=== PATIENT | female | born 1950 | race Caucasian/White ===

== ENCOUNTER 2017-10-22 23:44 | Inpatient (IN) | payer MEDICARE, OTHER ==
[~2017-10-22] VITALS: Ht 162.6 cm; Wt 90.9 kg
[~2017-10-22 23:44] MED LIST: ASPI1CPM9 PO; ATOR20TA66 PO; CINN500C16 PO; EMPA1TAB PO; GABA-532 PO; GARL200T PO; HYDR-569 PO; INSU100V36 SQ; LANTUS SQ; LISI2.5T2 PO; METF500T PO; MULT-821 PO; OMEG1CAP54 PO; ONDA8TAB9 PO; PRIM250T32 PO; PROP40TA7 PO
[2017-10-23] MEDS ORDERED: aspirin 81mg tab.chew PO ONE (00:30)
[2017-10-23] MEDS ORDERED: albuterol 2.5 MG/3 ML nebule CONTNEB PRN (00:50)
[2017-10-23] MEDS ORDERED: ipratropium 0.5 MG/2.5ML nebule IH ONE (00:50)
[2017-10-23 01:07] LABS: BASOPHILS # (AUTO) 0.1 X10'3 (0-0.2); BASOPHILS % (AUTO) 0.7 % (0-1); EOSINOPHILS # (AUTO) 0.1 X10'3 (0-0.9); EOSINOPHILS % (AUTO) 0.4 % (0-6); HEMATOCRIT 40.6 % (35.0-45.0); HEMOGLOBIN 13.2 g/dl (12.0-16.0); LYMPHOCYTES # (AUTO) 2.5 X10'3 (1.1-4.8); LYMPHOCYTES % (AUTO) 16.3 % (21-51); MEAN CORPUSCULAR HGB CONC 32.6 % (33.0-36.5); MEAN PLATELET VOLUME 8.2 FL (7.4-10.4); MONOCYTES # (AUTO) 0.6 X10'3 (0-0.9); MONOCYTES % (AUTO) 3.9 % (2-12); NEUTROPHILS # (AUTO) 12.1 X10'3 (1.8-7.7); NEUTROPHILS % (AUTO) 78.7 % (42-75); PLATELET COUNT 241 X10'3 (140-440); RED BLOOD COUNT 4.42 X10'6 (4.20-5.60); RED CELL DISTRIBUTION WIDTH 14.7 % (11.5-14.5); WHITE BLOOD COUNT 15.4 X10'3 (4.5-11.0)
[2017-10-23 01:13] LABS: PARTIAL THROMBOPLASTIN TIME 28 SECONDS (22-32); PROTHROMBIN TIME 10.7 SECONDS (9.0-12.0)
[2017-10-23 01:24] LABS: LIPASE 60 U/L (73-393); MAGNESIUM 1.6 MG/DL (1.5-2.4)
[2017-10-23 01:49] LABS: CLARITY,URINE SLIGHTLY CLOUDY (Clear); COLOR,URINE YELLOW (Yellow); GLUCOSE, URINE NEGATIVE (Neg); KETONES,URINE TRACE mg/dl (Neg); LEUKOCYTE ESTERASE ,URINE NEGATIVE (Neg); NITRITES, URINE NEGATIVE (Neg); OCCULT BLOOD,URINE NEGATIVE (Neg); PROTEIN,URINE 100 mg/dl (Neg); UROBILINOGEN,URINE 0.2 E.U/dL (0.2-1.0)
[2017-10-23 02:04] LABS: UA COLLECTION TYPE CLN CATCH MIDSTREAM
[2017-10-23 02:10] LABS: BACTERIA,URINE 1+ /HPF (Neg); MUCUS STRANDS MODERATE /LPF (Neg); RBC,URINE 0-2 /HPF (0-2); SQUAMOUS EPITHELIAL CELL,UR MANY /LPF (FEW); WBC,URINE 0-4 /HPF (0-4)
[2017-10-23 02:27] LABS: ALANINE AMINOTRANSFERASE 14 U/L (12-78); ALBUMIN 2.8 G/DL (3.4-5.0); ALBUMIN/GLOBULIN RATIO 0.6 (1.1-1.5); ALKALINE PHOSPHATASE 105 IU/L (46-116); ANION GAP 13 (8-16); ASPARTATE AMINO TRANSFERASE 16 U/L (10-37); BILIRUBIN,TOTAL 0.6 MG/DL (0.1-1.0); BLOOD UREA NITROGEN 22 MG/DL (7-18); BUN/CREATININE RATIO 17.5 (6.6-38.0); CALCIUM 8.6 MG/DL (8.5-10.1); CHLORIDE 101 MMOL/L (99-107); CREATININE 1.26 MG/DL (0.40-0.90); GLUCOSE 251 MG/DL (70-104); POTASSIUM 4.9 MMOL/L (3.5-5.1); SODIUM 135 MMOL/L (135-145); TOTAL CARBON DIOXIDE 21.2 MMOL/L (24-32); TOTAL PROTEIN 7.5 G/DL (6.4-8.2); eGFR 42 ML/MIN
[2017-10-23] MEDS ORDERED: IBUP-2417 (02:27)
[2017-10-23] MEDS ORDERED: OMEP40CA37 PO (02:27)
[2017-10-23] MEDS ORDERED: ACYC400T PO (02:27)
[2017-10-23] MEDS ORDERED: ASPI-1 PO (02:27)
[2017-10-23] MEDS ORDERED: PRAV40TA3 PO (02:28)
[2017-10-23] MEDS ORDERED: iohexol 300mg/ml 100ml inj. ONE (02:57)
[2017-10-23] MEDS ORDERED: iohexol 350MG/ML 100ml bottle IV ONE (03:04)
[2017-10-23] MEDS ORDERED: normal saline 1000ml 1,000 ML IV ONE (03:05)
[2017-10-23] MEDS ORDERED: ondansetron/PF 4mg/2ml inj IV PRN (04:10)
[2017-10-23] MEDS ORDERED: acetaminophen 325mg tablet PO PRN (04:10)
[2017-10-23] MEDS ORDERED: magnesium hydroxide 30ml (MOM) UD suspension PO PRN (04:10)
[2017-10-23] MEDS ORDERED: dextrose ORAL solution 15 GM/59 ML bottle PO PRN ×4 (04:20→17:10)
[2017-10-23] MEDS ORDERED: dextrose 50%-water 50ml dispensing syringe IV PRN ×4 (04:20→17:10)
[2017-10-23] MEDS ORDERED: glucagon, human recombinant 1mg kit SUBCUT PRN ×2 (04:20→17:10)
[2017-10-23] MEDS ORDERED: MESSAGE TO PHARMACY PO ONE ×2 (04:20→17:10)
[2017-10-23 04:41] LABS: HEMOGLOBIN A1C 9.5 % (4.5-6.2)
[2017-10-23 05:20] VITALS: BP 129/71
[2017-10-23 07:19] LABS: RHEUM FACTOR QUAL REFLEX TITER NEGATIVE (Neg)
[2017-10-23] MEDS ORDERED: FLUO20CA39 PO (07:46)
[2017-10-23 08:00] VITALS: BP 106/52
[2017-10-23] MEDS ORDERED: MESSAGE TO NURSING PO ONE (08:00)
[2017-10-23] MEDS: albuterol 2.5 MG/3 ML nebule NEB SCH ×5 (08:00→23:11)
[2017-10-23] MEDS: insulin Lispro (HumaLOG) vial - multi-dose SQ SCH ×3 (09:13→18:55)
[2017-10-23] MEDS: heparin, porcine 5000 units/ml vial SQ SCH ×2 (09:16→19:57)
[2017-10-23 12:00] VITALS: BP 129/59
[2017-10-23] MEDS: mag hydrox/Alum hydrox/simeth 30ml oral suspension PO PRN (12:15)
[2017-10-23] MEDS: levoFLOXACIN-Levaquin 500mg/D5 100 ML IV SCH (17:49)
[2017-10-23 18:00] VITALS: BP 124/66
[2017-10-23] MEDS ORDERED: ibuprofen 200mg tablet PO ONE (19:25)
[2017-10-23] MEDS: furosemide 40mg/4ml inj IV SCH (19:59)
[2017-10-23] MEDS: methylPREDNISolone sod succ 125mg/2ml vial IV SCH (20:00)
[2017-10-23] MEDS ORDERED: insulin glargine (Lantus) pen - multi-dose SQ SCH ×2 (21:00)
[2017-10-24] VITALS: BP 123/63
[2017-10-24] MEDS: methylPREDNISolone sod succ 125mg/2ml vial IV SCH ×4 (02:00→20:41)
[2017-10-24] MEDS: gabapentin 300mg capsule PO SCH ×4 (02:16→20:41)
[2017-10-24] MEDS: albuterol 2.5 MG/3 ML nebule NEB SCH ×6 (03:00→23:34)
[2017-10-24 04:28] LABS: BASOPHILS # (AUTO) 0.1 X10'3 (0-0.2); BASOPHILS % (AUTO) 0.7 % (0-1); EOSINOPHILS # (AUTO) 0.3 X10'3 (0-0.9); EOSINOPHILS % (AUTO) 3.4 % (0-6); HEMATOCRIT 38.5 % (35.0-45.0); LYMPHOCYTES # (AUTO) 3.2 X10'3 (1.1-4.8); LYMPHOCYTES % (AUTO) 37.7 % (21-51); MEAN CORPUSCULAR HEMOGLOBIN 31.3 PG (27.0-31.0); MEAN CORPUSCULAR HGB CONC 33.8 % (33.0-36.5); MEAN CORPUSCULAR VOLUME 92.5 FL (78-98); MEAN PLATELET VOLUME 7.9 FL (7.4-10.4); MONOCYTES # (AUTO) 0.9 X10'3 (0-0.9); MONOCYTES % (AUTO) 10.9 % (2-12); NEUTROPHILS % (AUTO) 47.3 % (42-75); PLATELET COUNT 221 X10'3 (140-440); RED BLOOD COUNT 4.16 X10'6 (4.20-5.60); RED CELL DISTRIBUTION WIDTH 15.4 % (11.5-14.5); WHITE BLOOD COUNT 8.4 X10'3 (4.5-11.0)
[2017-10-24 05:00] LABS: ALANINE AMINOTRANSFERASE 20 U/L (12-78); ALBUMIN 2.7 G/DL (3.4-5.0); ALBUMIN/GLOBULIN RATIO 0.6 (1.1-1.5); ALKALINE PHOSPHATASE 100 IU/L (46-116); ANION GAP 11 (8-16); ASPARTATE AMINO TRANSFERASE 22 U/L (10-37); BILIRUBIN,TOTAL 0.4 MG/DL (0.1-1.0); BLOOD UREA NITROGEN 23 MG/DL (7-18); BUN/CREATININE RATIO 17.2 (6.6-38.0); CALCIUM 9.1 MG/DL (8.5-10.1); CHLORIDE 102 MMOL/L (99-107); CREATININE 1.34 MG/DL (0.40-0.90); GLUCOSE 191 MG/DL (70-104); POTASSIUM 4.1 MMOL/L (3.5-5.1); SODIUM 137 MMOL/L (135-145); TOTAL CARBON DIOXIDE 24.3 MMOL/L (24-32); TOTAL PROTEIN 7.4 G/DL (6.4-8.2); eGFR 40 ML/MIN
[2017-10-24 08:00] VITALS: BP 132/63
[2017-10-24] MEDS: insulin Lispro (HumaLOG) vial - multi-dose SQ SCH ×3 (09:12→19:44)
[2017-10-24] MEDS: levoFLOXACIN-Levaquin 500mg/D5 100 ML IV SCH (09:13)
[2017-10-24] MEDS: heparin, porcine 5000 units/ml vial SQ SCH ×2 (09:13→20:31)
[2017-10-24] MEDS: furosemide 40mg/4ml inj IV SCH ×2 (09:14→20:28)
[2017-10-24 11:16] VITALS: BP 122/65
[2017-10-24 18:00] VITALS: BP 113/60
[2017-10-24] MEDS ORDERED: PROPRANOLOL HCL 80 MG PO SCH (20:00)
[2017-10-24] MEDS: propranolol 40mg tablet PO SCH (20:41)
[2017-10-24] MEDS: lactobacillus rhamnosus 10,000 MMU CELLS/CAPSULE PO SCH (20:41)
[2017-10-24] MEDS: pravastatin 40mg tablet PO SCH (20:41)
[2017-10-24] MEDS ORDERED: insulin glargine (Lantus) pen - multi-dose SQ SCH (21:00)
[2017-10-24] MEDS ORDERED: gabapentin 300mg capsule PO SCH (21:00)
[2017-10-25] VITALS: BP_SYST 117; BP_SYST 122; BP_DIAS 51; BP_DIAS 69
[2017-10-25] MEDS: methylPREDNISolone sod succ 125mg/2ml vial IV SCH ×2 (02:39→08:51)
[2017-10-25] MEDS: albuterol 2.5 MG/3 ML nebule NEB SCH ×6 (03:00→23:26)
[2017-10-25] MEDS ORDERED: aspirin 325mg tablet PO ONE (04:00)
[2017-10-25 05:18] LABS: BASOPHILS % (AUTO) 0.2 % (0-1); EOSINOPHILS % (AUTO) 0 % (0-6); HEMATOCRIT 41.8 % (35.0-45.0); LYMPHOCYTES # (AUTO) 1.3 X10'3 (1.1-4.8); LYMPHOCYTES % (AUTO) 16.2 % (21-51); MEAN CORPUSCULAR HEMOGLOBIN 30.5 PG (27.0-31.0); MEAN CORPUSCULAR HGB CONC 33.5 % (33.0-36.5); MEAN PLATELET VOLUME 8.2 FL (7.4-10.4); MONOCYTES # (AUTO) 0.1 X10'3 (0-0.9); MONOCYTES % (AUTO) 1.1 % (2-12); NEUTROPHILS # (AUTO) 6.4 X10'3 (1.8-7.7); NEUTROPHILS % (AUTO) 82.5 % (42-75); PLATELET COUNT 245 X10'3 (140-440); WHITE BLOOD COUNT 7.7 X10'3 (4.5-11.0)
[2017-10-25 05:43] LABS: ALANINE AMINOTRANSFERASE 17 U/L (12-78); ALBUMIN 2.9 G/DL (3.4-5.0); ALBUMIN/GLOBULIN RATIO 0.5 (1.1-1.5); ALKALINE PHOSPHATASE 104 IU/L (46-116); ANION GAP 15 (8-16); ASPARTATE AMINO TRANSFERASE 16 U/L (10-37); BILIRUBIN,TOTAL 0.5 MG/DL (0.1-1.0); BLOOD UREA NITROGEN 37 MG/DL (7-18); BUN/CREATININE RATIO 24.5 (6.6-38.0); CALCIUM 9.2 MG/DL (8.5-10.1); CHLORIDE 95 MMOL/L (99-107); CREATININE 1.51 MG/DL (0.40-0.90); GLUCOSE 400 MG/DL (70-104); POTASSIUM 4.6 MMOL/L (3.5-5.1); SODIUM 131 MMOL/L (135-145); TOTAL CARBON DIOXIDE 20.8 MMOL/L (24-32); TOTAL PROTEIN 8.3 G/DL (6.4-8.2); eGFR 34 ML/MIN
[2017-10-25 07:00] VITALS: BP 135/52
[2017-10-25] MEDS ORDERED: non-formulary drug (Omeprazole (Prilosec) 1 CAP) PO SCH (08:00)
[2017-10-25] MEDS ORDERED: aspirin 325mg tablet PO SCH (08:00)
[2017-10-25] MEDS: furosemide 40mg/4ml inj IV SCH ×2 (08:50→21:19)
[2017-10-25] MEDS: lactobacillus rhamnosus 10,000 MMU CELLS/CAPSULE PO SCH ×2 (08:51→21:16)
[2017-10-25] MEDS: gabapentin 300mg capsule PO SCH ×3 (08:51→21:18)
[2017-10-25] MEDS: lisinopril 2.5mg tablet PO SCH (08:51)
[2017-10-25] MEDS: levoFLOXACIN-Levaquin 500mg/D5 100 ML IV SCH (08:51)
[2017-10-25] MEDS: heparin, porcine 5000 units/ml vial SQ SCH ×2 (08:52→21:19)
[2017-10-25] MEDS: propranolol 40mg tablet PO SCH ×2 (08:52→21:18)
[2017-10-25] MEDS: insulin Lispro (HumaLOG) vial - multi-dose SQ SCH ×3 (08:55→18:49)
[2017-10-25] MEDS: pantoprazole 40mg Tablet.DR PO SCH (08:58)
[2017-10-25] MEDS ORDERED: dextrose ORAL solution 15 GM/59 ML bottle PO PRN ×2 (09:45)
[2017-10-25] MEDS ORDERED: glucagon, human recombinant 1mg kit SUBCUT PRN (09:45)
[2017-10-25] MEDS ORDERED: dextrose 50%-water 50ml dispensing syringe IV PRN ×2 (09:45)
[2017-10-25] MEDS ORDERED: MESSAGE TO PHARMACY PO ONE (09:45)
[2017-10-25] MEDS: normal saline 1000ml 1,000 ML IV SCH ×3 (10:01→23:17)
[2017-10-25 11:00] VITALS: BP 111/61
[2017-10-25] MEDS: mag hydrox/Alum hydrox/simeth 30ml oral suspension PO PRN (16:16)
[2017-10-25 18:00] VITALS: BP 114/70
[2017-10-25] MEDS: insulin glargine (Lantus) pen - multi-dose SQ SCH (21:13)
[2017-10-25] MEDS: pravastatin 40mg tablet PO SCH (21:16)
[2017-10-26] MEDS: albuterol 2.5 MG/3 ML nebule NEB SCH ×6 (03:10→23:20)
[2017-10-26 05:21] LABS: BASOPHILS # (AUTO) 0.1 X10'3 (0-0.2); BASOPHILS % (AUTO) 0.3 % (0-1); EOSINOPHILS % (AUTO) 0 % (0-6); HEMATOCRIT 37.4 % (35.0-45.0); HEMOGLOBIN 12.6 g/dl (12.0-16.0); LYMPHOCYTES # (AUTO) 1.7 X10'3 (1.1-4.8); LYMPHOCYTES % (AUTO) 8.7 % (21-51); MEAN CORPUSCULAR HEMOGLOBIN 30.8 PG (27.0-31.0); MEAN CORPUSCULAR HGB CONC 33.7 % (33.0-36.5); MEAN CORPUSCULAR VOLUME 91.6 FL (78-98); MEAN PLATELET VOLUME 8.2 FL (7.4-10.4); MONOCYTES # (AUTO) 0.7 X10'3 (0-0.9); MONOCYTES % (AUTO) 3.7 % (2-12); NEUTROPHILS % (AUTO) 87.3 % (42-75); PLATELET COUNT 243 X10'3 (140-440); RED BLOOD COUNT 4.09 X10'6 (4.20-5.60); RED CELL DISTRIBUTION WIDTH 15.5 % (11.5-14.5); WHITE BLOOD COUNT 19.4 X10'3 (4.5-11.0)
[2017-10-26] MEDS: normal saline 1000ml 1,000 ML IV SCH ×3 (05:26→19:19)
[2017-10-26 05:42] LABS: ALANINE AMINOTRANSFERASE 17 U/L (12-78); ALBUMIN 2.6 G/DL (3.4-5.0); ALBUMIN/GLOBULIN RATIO 0.6 (1.1-1.5); ALKALINE PHOSPHATASE 79 IU/L (46-116); ANION GAP 13 (8-16); ASPARTATE AMINO TRANSFERASE 11 U/L (10-37); BILIRUBIN,TOTAL 0.3 MG/DL (0.1-1.0); BLOOD UREA NITROGEN 37 MG/DL (7-18); BUN/CREATININE RATIO 28.9 (6.6-38.0); CALCIUM 8.7 MG/DL (8.5-10.1); CHLORIDE 101 MMOL/L (99-107); CREATININE 1.28 MG/DL (0.40-0.90); GLUCOSE 291 MG/DL (70-104); POTASSIUM 4.1 MMOL/L (3.5-5.1); SODIUM 136 MMOL/L (135-145); TOTAL CARBON DIOXIDE 22.2 MMOL/L (24-32); eGFR 42 ML/MIN
[2017-10-26 08:00] VITALS: BP 123/55
[2017-10-26] MEDS: lisinopril 2.5mg tablet PO SCH (08:36)
[2017-10-26] MEDS: lactobacillus rhamnosus 10,000 MMU CELLS/CAPSULE PO SCH ×2 (08:36→19:15)
[2017-10-26] MEDS: aspirin 325mg tablet PO SCH (08:36)
[2017-10-26] MEDS: heparin, porcine 5000 units/ml vial SQ SCH ×2 (08:36→19:16)
[2017-10-26] MEDS: propranolol 40mg tablet PO SCH ×2 (08:37→19:15)
[2017-10-26] MEDS: levoFLOXACIN-Levaquin 500mg/D5 100 ML IV SCH (08:46)
[2017-10-26] MEDS: pantoprazole 40mg Tablet.DR PO SCH (08:50)
[2017-10-26] MEDS: insulin Lispro (HumaLOG) vial - multi-dose SQ SCH ×3 (09:41→19:02)
[2017-10-26 12:00] VITALS: BP 131/62
[2017-10-26 19:00] VITALS: BP 120/63
[2017-10-26] MEDS: gabapentin 300mg capsule PO SCH (19:15)
[2017-10-26] MEDS ORDERED: methylPREDNISolone sod succ/PF 40mg inj. IV SCH (20:00)
[2017-10-26] MEDS: pravastatin 40mg tablet PO SCH (20:49)
[2017-10-26] MEDS: insulin glargine (Lantus) pen - multi-dose SQ SCH (20:54)
[2017-10-27] VITALS: BP 136/59
[2017-10-27] MEDS: normal saline 1000ml 1,000 ML IV SCH ×3 (01:45→10:25)
[2017-10-27] MEDS: albuterol 2.5 MG/3 ML nebule NEB SCH ×3 (03:34→12:06)
[2017-10-27 05:24] LABS: BASOPHILS % (AUTO) 0.2 % (0-1); EOSINOPHILS % (AUTO) 0.4 % (0-6); HEMATOCRIT 35.2 % (35.0-45.0); HEMOGLOBIN 11.5 g/dl (12.0-16.0); LYMPHOCYTES % (AUTO) 22.5 % (21-51); MEAN CORPUSCULAR HEMOGLOBIN 30.3 PG (27.0-31.0); MEAN CORPUSCULAR HGB CONC 32.6 % (33.0-36.5); MEAN PLATELET VOLUME 8.6 FL (7.4-10.4); MONOCYTES # (AUTO) 1.1 X10'3 (0-0.9); NEUTROPHILS # (AUTO) 9.1 X10'3 (1.8-7.7); NEUTROPHILS % (AUTO) 68.9 % (42-75); PLATELET COUNT 211 X10'3 (140-440); RED BLOOD COUNT 3.79 X10'6 (4.20-5.60); RED CELL DISTRIBUTION WIDTH 15.6 % (11.5-14.5); WHITE BLOOD COUNT 13.3 X10'3 (4.5-11.0)
[2017-10-27 05:53] LABS: ALANINE AMINOTRANSFERASE 17 U/L (12-78); ALBUMIN 2.3 G/DL (3.4-5.0); ALBUMIN/GLOBULIN RATIO 0.6 (1.1-1.5); ALKALINE PHOSPHATASE 75 IU/L (46-116); ANION GAP 10 (8-16); ASPARTATE AMINO TRANSFERASE 22 U/L (10-37); BILIRUBIN,TOTAL 0.3 MG/DL (0.1-1.0); BLOOD UREA NITROGEN 27 MG/DL (7-18); CHLORIDE 109 MMOL/L (99-107); CREATININE 0.93 MG/DL (0.40-0.90); GLUCOSE 156 MG/DL (70-104); POTASSIUM 4.3 MMOL/L (3.5-5.1); SODIUM 143 MMOL/L (135-145); TOTAL PROTEIN 6.1 G/DL (6.4-8.2); eGFR 60 ML/MIN
[2017-10-27 06:46] VITALS: BP 127/56
[2017-10-27] MEDS: levoFLOXACIN-Levaquin 500mg/D5 100 ML IV SCH (07:19)
[2017-10-27] MEDS: heparin, porcine 5000 units/ml vial SQ SCH (07:20)
[2017-10-27] MEDS: lisinopril 2.5mg tablet PO SCH (07:20)
[2017-10-27] MEDS: propranolol 40mg tablet PO SCH (07:20)
[2017-10-27] MEDS: gabapentin 300mg capsule PO SCH (07:21)
[2017-10-27] MEDS: pantoprazole 40mg Tablet.DR PO SCH (07:21)
[2017-10-27] MEDS: lactobacillus rhamnosus 10,000 MMU CELLS/CAPSULE PO SCH (07:21)
[2017-10-27] MEDS: aspirin 325mg tablet PO SCH (07:21)
[2017-10-27] MEDS: insulin Lispro (HumaLOG) vial - multi-dose SQ SCH ×2 (08:56→13:27)
[2017-10-28 15:16] LABS: ATYPICAL PANCA <1:20 titer (Neg:<1:20); CYTOPLASMIC (C-ANCA) <1:20 titer (Neg:<1:20); PERINUCLEAR (P-ANCA) <1:20 titer (Neg:<1:20)
== END 2017-10-27 13:45 | disposition left against medical advice (07) | DRG 871 ==
LOC: ER 23:45 → ED HOLD 10-23 04:10 → CMPBEDREQ 10-23 05:13 → SUR 3N 10-23 05:15
PROVIDERS: ADMIT Internal Medicine; ATTEND Family Medicine
PROC: BW241ZZ Computerized Tomography (CT Scan) of Chest and Abdomen using Low Osmolar Contrast (ICD-10-PCS; principal; 2017-10-23)
PROC: CB221ZZ Tomographic (Tomo) Nuclear Medicine Imaging of Lungs and Bronchi using Technetium 99m (Tc-99m) (ICD-10-PCS; 2017-10-24)
DX: A41.9 Sepsis, unspecified organism (principal); J18.9 Pneumonia, unspecified organism; J96.01 Acute respiratory failure with hypoxia; J84.9 Interstitial pulmonary disease, unspecified; J44.0 Chronic obstructive pulmonary disease with (acute) lower respiratory infection; Z53.21 Procedure and treatment not carried out due to patient leaving prior to being seen by health care provider; E78.00 Pure hypercholesterolemia, unspecified; F41.9 Anxiety disorder, unspecified; E11.22 Type 2 diabetes mellitus with diabetic chronic kidney disease; I12.9 Hypertensive chronic kidney disease with stage 1 through stage 4 chronic kidney disease, or unspecified chronic kidney disease; E11.65 Type 2 diabetes mellitus with hyperglycemia; N18.9 Chronic kidney disease, unspecified; G20 Parkinson's disease; I25.2 Old myocardial infarction; Z90.710 Acquired absence of both cervix and uterus; Z98.1 Arthrodesis status; Z88.5 Allergy status to narcotic agent; Z88.0 Allergy status to penicillin; Z79.82 Long term (current) use of aspirin; Z79.4 Long term (current) use of insulin; Z86.73 Personal history of transient ischemic attack (TIA), and cerebral infarction without residual deficits; Z87.891 Personal history of nicotine dependence; Z83.3 Family history of diabetes mellitus; Z80.9 Family history of malignant neoplasm, unspecified; Z84.89 Family history of other specified conditions
CPT/HCPCS: 36415; 71045; 71260; 78582; 80053; 81001; 81002; 82009; 82948; 83036; 83605; 83690; 83735; 83880; 84145; 84484; 85025; 85610; 85730; 86038; 86256; 86430; 87040; 87070; 93005; 93306; 93880; 94640; 94760; 97116; 97161; 97535; 99285; A9539; A9540; J1644; J1815; J1940; J1956; J2930; J7030; Q9967

== ENCOUNTER 2017-11-23 22:44 | Emergency (ER) | payer MEDICARE, OTHER ==
[~2017-11-23] VITALS: Ht 162.6 cm; Wt 80.0 kg
[~2017-11-23 22:44] MED LIST changes: +ASPI-1 PO; -ASPI1CPM9 PO; -ATOR20TA66 PO; -CINN500C16 PO; -EMPA1TAB PO; +FLUO20CA39 PO; -GARL200T PO; -HYDR-569 PO; +IBUP200C74; -METF500T PO; -OMEG1CAP54 PO; +OMEP40CA37 PO; -ONDA8TAB9 PO; +PRAV40TA3 PO; -PRIM250T32 PO
[2017-11-23 23:00] LABS: BASOPHILS % (AUTO) 0.3 % (0-1); EOSINOPHILS # (AUTO) 0.2 X10'3 (0-0.9); EOSINOPHILS % (AUTO) 1.5 % (0-6); HEMATOCRIT 39.7 % (35.0-45.0); HEMOGLOBIN 13.4 g/dl (12.0-16.0); LYMPHOCYTES # (AUTO) 2.4 X10'3 (1.1-4.8); LYMPHOCYTES % (AUTO) 20.1 % (21-51); MEAN CORPUSCULAR HEMOGLOBIN 30.7 PG (27.0-31.0); MEAN CORPUSCULAR HGB CONC 33.6 % (33.0-36.5); MEAN CORPUSCULAR VOLUME 91.1 FL (78-98); MEAN PLATELET VOLUME 7.9 FL (7.4-10.4); MONOCYTES # (AUTO) 1.1 X10'3 (0-0.9); MONOCYTES % (AUTO) 8.7 % (2-12); NEUTROPHILS # (AUTO) 8.4 X10'3 (1.8-7.7); NEUTROPHILS % (AUTO) 69.4 % (42-75); PLATELET COUNT 214 X10'3 (140-440); RED BLOOD COUNT 4.36 X10'6 (4.20-5.60); RED CELL DISTRIBUTION WIDTH 15.6 % (11.5-14.5); WHITE BLOOD COUNT 12.1 X10'3 (4.5-11.0)
[2017-11-23 23:12] LABS: PARTIAL THROMBOPLASTIN TIME 26 SECONDS (22-32); PROTHROMBIN TIME 10.4 SECONDS (9.0-12.0)
[2017-11-23 23:24] LABS: ALANINE AMINOTRANSFERASE 16 U/L (12-78); ALBUMIN 2.9 G/DL (3.4-5.0); ALBUMIN/GLOBULIN RATIO 0.6 (1.1-1.5); ALKALINE PHOSPHATASE 100 IU/L (46-116); ANION GAP 7 (8-16); ASPARTATE AMINO TRANSFERASE 13 U/L (10-37); BILIRUBIN,TOTAL 0.4 MG/DL (0.1-1.0); BLOOD UREA NITROGEN 18 MG/DL (7-18); BUN/CREATININE RATIO 17.8 (6.6-38.0); CALCIUM 9.2 MG/DL (8.5-10.1); CHLORIDE 102 MMOL/L (99-107); CREATININE 1.01 MG/DL (0.40-0.90); GLUCOSE 339 MG/DL (70-104); POTASSIUM 4.2 MMOL/L (3.5-5.1); SODIUM 134 MMOL/L (135-145); TOTAL CARBON DIOXIDE 25.1 MMOL/L (24-32); TOTAL PROTEIN 7.7 G/DL (6.4-8.2); eGFR 55 ML/MIN
[2017-11-24 01:40] LABS: CLARITY,URINE CLEAR (Clear); COLOR,URINE YELLOW (Yellow); GLUCOSE, URINE >=1000 mg/dl (Neg); KETONES,URINE NEGATIVE (Neg); LEUKOCYTE ESTERASE ,URINE NEGATIVE (Neg); NITRITES, URINE NEGATIVE (Neg); OCCULT BLOOD,URINE NEGATIVE (Neg); PH,URINE 5.5 (4.8-8.0); PROTEIN,URINE 30 mg/dl (Neg); UROBILINOGEN,URINE 0.2 E.U/dL (0.2-1.0)
[2017-11-24 01:46] LABS: UA COLLECTION TYPE CLN CATCH MIDSTREAM
[2017-11-24 01:47] LABS: BACTERIA,URINE FEW /HPF (Neg); RBC,URINE 0-2 /HPF (0-2); SQUAMOUS EPITHELIAL CELL,UR FEW /LPF (FEW); WBC,URINE 0-4 /HPF (0-4)
[2017-11-24 01:48] LABS: YEAST MODERATE /HPF (NEGATIVE)
[2017-11-24] MEDS ORDERED: PRED20TA PO (01:55)
[2017-11-24] MEDS ORDERED: LEVO500T2 PO (01:55)
[2017-11-24 02:36] VITALS: BP 142/79
== END 2017-11-24 02:38 | disposition home or self-care (01) ==
LOC: ER 22:45
DX: J44.1 Chronic obstructive pulmonary disease with (acute) exacerbation (principal); E78.00 Pure hypercholesterolemia, unspecified; I10 Essential (primary) hypertension; I25.2 Old myocardial infarction; E11.9 Type 2 diabetes mellitus without complications; Z90.710 Acquired absence of both cervix and uterus; Z98.890 Other specified postprocedural states; Z90.89 Acquired absence of other organs; Z86.73 Personal history of transient ischemic attack (TIA), and cerebral infarction without residual deficits; Z88.5 Allergy status to narcotic agent; Z88.0 Allergy status to penicillin; Z79.82 Long term (current) use of aspirin; Z79.4 Long term (current) use of insulin; Z79.899 Other long term (current) drug therapy; Z87.891 Personal history of nicotine dependence
CPT/HCPCS: 36415; 71045; 80053; 81001; 83605; 83880; 84145; 84484; 85025; 85610; 85730; 87040; 93005; 99285

== ENCOUNTER 2018-07-30 16:36 | Inpatient (IN) | payer MEDICARE, OTHER ==
[~2018-07-30] VITALS: Ht 162.6 cm; Wt 96.0 kg
[~2018-07-30 16:36] MED LIST changes: +IBUP-2417; -IBUP200C74
[2018-07-30] MEDS ORDERED: ibuprofen tablet 400 MG TABLET PO ONE (17:05)
[2018-07-30] MEDS ORDERED: insulin regular, human 10 units/0.1 ml syringe IV ONE (17:10)
[2018-07-30] MEDS ORDERED: normal saline 1000ML IV soln IVB ONE (17:10)
[2018-07-30 17:27] LABS: BASOPHILS # (AUTO) 0.1 X10'3 (0-0.2); BASOPHILS % (AUTO) 0.7 % (0-1); EOSINOPHILS % (AUTO) 0.2 % (0-6); HEMATOCRIT 36.7 % (35.0-45.0); HEMOGLOBIN 12.6 g/dl (12.0-16.0); LYMPHOCYTES # (AUTO) 2.5 X10'3 (1.1-4.8); LYMPHOCYTES % (AUTO) 18.3 % (21-51); MEAN CORPUSCULAR HEMOGLOBIN 32.4 PG (27.0-31.0); MEAN CORPUSCULAR HGB CONC 34.4 g/dL (33.0-36.5); MEAN CORPUSCULAR VOLUME 94.4 FL (78-98); MEAN PLATELET VOLUME 8.5 FL (7.4-10.4); MONOCYTES # (AUTO) 1.5 X10'3 (0-0.9); MONOCYTES % (AUTO) 10.8 % (2-12); NEUTROPHILS # (AUTO) 9.5 X10'3 (1.8-7.7); PLATELET COUNT 210 X10'3 (140-440); RED BLOOD COUNT 3.89 X10'6 (4.20-5.60); RED CELL DISTRIBUTION WIDTH 13.9 % (11.5-14.5); WHITE BLOOD COUNT 13.6 X10'3 (4.5-11.0)
[2018-07-30 17:35] LABS: ALANINE AMINOTRANSFERASE 22 U/L (12-78); ALBUMIN 2.8 G/DL (3.4-5.0); ALBUMIN/GLOBULIN RATIO 0.6 (1.1-1.5); ALKALINE PHOSPHATASE 79 IU/L (46-116); ANION GAP 9 (8-16); ASPARTATE AMINO TRANSFERASE 26 U/L (10-37); BILIRUBIN,TOTAL 0.7 MG/DL (0.1-1.0); BLOOD UREA NITROGEN 21 MG/DL (7-18); BUN/CREATININE RATIO 17.5 (6.6-38.0); CALCIUM 8.7 MG/DL (8.5-10.1); CHLORIDE 99 MMOL/L (99-107); GLUCOSE 384 MG/DL (70-104); POTASSIUM 4.6 MMOL/L (3.5-5.1); SODIUM 131 MMOL/L (135-145); TOTAL CARBON DIOXIDE 22.9 MMOL/L (24-32); TOTAL PROTEIN 7.3 G/DL (6.4-8.2); eGFR 45 ML/MIN
[2018-07-30 17:41] LABS: PARTIAL THROMBOPLASTIN TIME 32 SECONDS (22-32)
[2018-07-30 18:04] LABS: CLARITY,URINE CLOUDY (Clear); COLOR,URINE YELLOW (Yellow); GLUCOSE, URINE >=1000 mg/dl (Neg); KETONES,URINE 15 mg/dl (Neg); LEUKOCYTE ESTERASE ,URINE TRACE (Neg); NITRITES, URINE NEGATIVE (Neg); OCCULT BLOOD,URINE MODERATE (Neg); PROTEIN,URINE NEGATIVE (Neg); UROBILINOGEN,URINE 0.2 E.U/dL (0.2-1.0)
[2018-07-30 18:05] LABS: UA COLLECTION TYPE STRAIGHT CATH
[2018-07-30] MEDS ORDERED: CefTRIAXone 2gm/D5W 50ml 50 ML IV ONE (18:10)
[2018-07-30 18:11] LABS: SQUAMOUS EPITHELIAL CELL,UR MODERATE /LPF (FEW); WBC,URINE TNTC /HPF (0-4)
[2018-07-30 18:15] LABS: BACTERIA,URINE 1+ /HPF (Neg); YEAST MANY /HPF (NEGATIVE)
[2018-07-30 18:17] LABS: TRANSITIONAL EPI CELLS,URINE FEW /HPF; WBC CLUMPS,URINE MANY /HPF (NEGATIVE)
[2018-07-30] MEDS ORDERED: acetaminophen 325mg tablet PO PRN ×2 (20:20)
[2018-07-30] MEDS ORDERED: normal saline 1000ml 1,000 ML IV ONE (20:20)
[2018-07-30] MEDS ORDERED: MESSAGE TO PHARMACY PO ONE (20:20)
[2018-07-30] MEDS ORDERED: magnesium 2GM in 50ml NS 50 ML IV PRN (20:20)
[2018-07-30] MEDS ORDERED: dextrose 50%-water 50ml dispensing syringe IV PRN ×2 (20:20)
[2018-07-30] MEDS ORDERED: magnesium Cl slow-release 64mg tablet PO PRN (20:20)
[2018-07-30] MEDS ORDERED: glucagon, human recombinant 1mg kit SUBCUT PRN (20:20)
[2018-07-30] MEDS ORDERED: dextrose ORAL solution 15 GM/59 ML bottle PO PRN ×2 (20:20)
[2018-07-30] MEDS ORDERED: potassium Cl 20 mEq SR tablet PO PRN ×2 (20:20)
[2018-07-30] MEDS ORDERED: ondansetron/PF 4mg/2ml inj IV PRN (20:20)
[2018-07-30] MEDS ORDERED: magnesium 4gm in 100ml NS 100 ML IV PRN (20:20)
[2018-07-30] MEDS ORDERED: potassium Cl 40MEQ/NS 500ml 500 ML IV PRN ×2 (20:20)
[2018-07-30] MEDS ORDERED: mag hydrox/Alum hydrox/simeth 30ml oral suspension PO PRN (20:20)
[2018-07-30 20:59] LABS: HEMOGLOBIN A1C 12.7 % (4.5-6.2)
[2018-07-30] MEDS ORDERED: insulin glargine (Lantus) pen - multi-dose SQ SCH (21:00)
[2018-07-30 23:00] VITALS: BP 114/55
[2018-07-30] MEDS: insulin Lispro (HumaLOG) vial - multi-dose SQ SCH (23:49)
[2018-07-31] MEDS ORDERED: ipratropium/albuterol 3ml nebule NEB PRN (00:50)
--- NOTE | 2018-07-31 01:56 | NUR ---
PIV attempted by PCU nurse, Elyse. Patient screamed out saying "stop, it hurts. I don't want an IV! Id rather !" Patient requested breathing tx. RT waiting for her to finish a sandwich.
[2018-07-31] MEDS: ipratropium/albuterol 3ml nebule NEB SCH ×6 (02:03→23:21)
[2018-07-31 06:00] VITALS: BP 119/53
--- NOTE | 2018-07-31 06:05 | NUR ---
Patient in room ORTHO 4011. I have received report from Franchesca Linn RN and had the opportunity to ask questions and assume patient care.
--- NOTE | 2018-07-31 06:33 | NUR ---
Problems reprioritized. Patient report given, questions answered & plan of care reviewed with JACQUES Barragan.
[2018-07-31 07:12] LABS: ALBUMIN 2.5 G/DL (3.4-5.0); ANION GAP 9 (8-16); BLOOD UREA NITROGEN 21 MG/DL (7-18); BUN/CREATININE RATIO 17.4 (6.6-38.0); CHLORIDE 102 MMOL/L (99-107); CREATININE 1.21 MG/DL (0.40-0.90); GLUCOSE 436 MG/DL (70-104); MAGNESIUM 2.1 MG/DL (1.5-2.4); POTASSIUM 4.5 MMOL/L (3.5-5.1); SODIUM 134 MMOL/L (135-145); TOTAL CARBON DIOXIDE 23.1 MMOL/L (24-32); eGFR 45 ML/MIN
[2018-07-31 07:14] LABS: BASOPHILS # (AUTO) 0.1 X10'3 (0-0.2); BASOPHILS % (AUTO) 0.6 % (0-1); EOSINOPHILS # (AUTO) 0.1 X10'3 (0-0.9); EOSINOPHILS % (AUTO) 0.9 % (0-6); HEMATOCRIT 36.6 % (35.0-45.0); HEMOGLOBIN 12.4 g/dl (12.0-16.0); LYMPHOCYTES # (AUTO) 1.8 X10'3 (1.1-4.8); LYMPHOCYTES % (AUTO) 17.4 % (21-51); MEAN CORPUSCULAR HEMOGLOBIN 32.3 PG (27.0-31.0); MEAN CORPUSCULAR HGB CONC 33.9 g/dL (33.0-36.5); MEAN CORPUSCULAR VOLUME 95.3 FL (78-98); MEAN PLATELET VOLUME 8.7 FL (7.4-10.4); MONOCYTES # (AUTO) 1.4 X10'3 (0-0.9); MONOCYTES % (AUTO) 12.9 % (2-12); NEUTROPHILS # (AUTO) 7.2 X10'3 (1.8-7.7); NEUTROPHILS % (AUTO) 68.2 % (42-75); PLATELET COUNT 192 X10'3 (140-440); RED BLOOD COUNT 3.85 X10'6 (4.20-5.60); RED CELL DISTRIBUTION WIDTH 14.4 % (11.5-14.5); WHITE BLOOD COUNT 10.6 X10'3 (4.5-11.0)
[2018-07-31 08:00] VITALS: BP 131/71
[2018-07-31] MEDS ORDERED: budesonide 0.5mg/2ml UD nebule IH SCH (08:00)
[2018-07-31] MEDS: K and/or MAG REPLACEMENT MC SCH (08:00)
[2018-07-31] MEDS: lactobacillus rhamnosus 10,000 MMU CELLS/CAPSULE PO SCH ×2 (08:17→20:00)
[2018-07-31] MEDS: enoxaparin 40mg/0.4ml syringe SQ SCH (08:18)
--- NOTE | 2018-07-31 09:43 | NUR ---
PAGER ID: [phone] MESSAGE: La[facility] on [employer], # [phone] or [phone], Ms. Jewell in 4[address], c/o chest pain, EKG done, indicates ROMINAR, faviola, thank you
[2018-07-31] MEDS: insulin Lispro (HumaLOG) vial - multi-dose SQ SCH ×4 (10:56→21:57)
[2018-07-31] MEDS: aspirin/acetaminophen/caffeine tablet PO PRN ×2 (11:31→21:25)
--- NOTE | 2018-07-31 12:00 | NUR ---
PAGER ID: [phone] MESSAGE: [facility], Ms. Jewell in 4571T, are you able to call me re medications?, pharm has questions, #[phone], thank you
[2018-07-31] MEDS: insulin glargine (Lantus) pen - multi-dose SQ SCH ×2 (12:27→20:21)
--- NOTE | 2018-07-31 12:41 | NUR ---
Extended PIV inserted to the right upper arm cephalic vein x 1 ateempt after 2 failed attempt to the left upper arm cephalic vein and 1 PIV 20 to left FA all using ultrasound. Lico well Addendum: 07/31/18 at 1243 by Sommer Wheatley RN Amended: Links added.
[2018-07-31] MEDS: gabapentin 400mg capsule PO SCH ×2 (13:24→20:24)
[2018-07-31] MEDS: normal saline 1000ml 1,000 ML IV SCH (13:24)
[2018-07-31] MEDS: LIDOcaine 5% patch TP SCH (13:24)
[2018-07-31] MEDS: pantoprazole 40mg Tablet.DR PO SCH (13:24)
--- NOTE | 2018-07-31 16:40 | NUR ---
Malnutrition consult: Pt seen at bedside states she is unsure of UBW, noted that documented wt was 200# 10/23/17, current documented wt is 211# using standing scale with BMI 36.3. Pt on heart healthy CHO controlled diet with documented PO intake 100% meeting nutrient needs. Pt with no visible fat or muscle wasting and no documented edema. Pt currently does not meet criteria for malnutrition. DM consult: Pt with A1c 12.7. Pt states she doesn't see an MD regularly or check her BG levels however she does take her DM meds. Pt denies any questions about DM at this time. Pt given written DM ed with referral to outpatient DM class and RD contact information. Pt states she has had a low appetite x 2 days however she has still been able to eat. Pt requested Ensure High Protein TID, notified MD, did not approve at this time. Pt states she has no food allergies or constipation/diarrhea. Pt reports difficulty chewing d/t missing bottom teeth, pt agreeable to soft to chew foods, d/w dietary. Pt admit with UTI, COPD exacerbation and hyperglycemia. Will continue to follow. Recommendations: 1) Continue with heart healthy CHO controlled diet 2) Soft to chew per pt request 3) Wt per rx Addendum: 07/31/18 at [address] Peña RD Amended: Links added.
[2018-07-31 18:00] VITALS: BP 160/72
--- NOTE | 2018-07-31 18:24 | NUR ---
Problems reprioritized. Patient report given, questions answered & plan of care reviewed with Alberta HANNA.
--- NOTE | 2018-07-31 18:45 | NUR ---
Patient in room ORTHO 4011. I have received report from Laurel HANNA and had the opportunity to ask questions and assume patient care.
[2018-07-31] MEDS: BUDESONIDE 0.25 MG/2 ML AMPUL.NEB IH SCH (19:29)
[2018-07-31] MEDS: FLUoxetine 20mg capsule PO SCH (20:00)
[2018-07-31] MEDS: pravastatin 40mg tablet PO SCH (20:24)
[2018-07-31] MEDS: CefTRIAXone 2gm/D5W 50ml 50 ML IV SCH (21:54)
[2018-07-31 22:00] VITALS: BP 132/65
[2018-08-01] MEDS: ipratropium/albuterol 3ml nebule NEB SCH ×5 (02:52→23:00)
[2018-08-01 06:00] VITALS: BP 161/78
--- NOTE | 2018-08-01 06:20 | NUR ---
Problems reprioritized. Patient report given, questions answered & plan of care reviewed with Roberto HANNA.
--- NOTE | 2018-08-01 06:30 | NUR ---
Patient in room ORTHO 4011. I have received report from Alberta HANNA and had the opportunity to ask questions and assume patient care.
--- NOTE | 2018-08-01 06:47 | NUR ---
Paged respiratory saying that patient is requesting resp treatment shes feeling short of breath, will continue to monitor
[2018-08-01] MEDS: BUDESONIDE 0.25 MG/2 ML AMPUL.NEB IH SCH ×2 (06:57→21:04)
[2018-08-01] MEDS: enoxaparin 40mg/0.4ml syringe SQ SCH (07:42)
[2018-08-01] MEDS: lactobacillus rhamnosus 10,000 MMU CELLS/CAPSULE PO SCH ×2 (07:43→20:14)
[2018-08-01] MEDS: pantoprazole 40mg Tablet.DR PO SCH (07:43)
[2018-08-01] MEDS: gabapentin 400mg capsule PO SCH ×3 (07:43→20:15)
[2018-08-01] MEDS: FLUoxetine 20mg capsule PO SCH ×2 (07:44→20:15)
[2018-08-01] MEDS: insulin glargine (Lantus) pen - multi-dose SQ SCH ×2 (07:49→21:19)
[2018-08-01] MEDS: aspirin/acetaminophen/caffeine tablet PO PRN (07:51)
[2018-08-01] MEDS: normal saline 1000ml 1,000 ML IV SCH ×2 (07:56→14:25)
[2018-08-01] MEDS: K and/or MAG REPLACEMENT MC SCH (07:58)
[2018-08-01] MEDS: LIDOcaine 5% patch TP SCH (07:58)
[2018-08-01] MEDS: insulin Lispro (HumaLOG) vial - multi-dose SQ SCH ×4 (09:03→21:17)
[2018-08-01 10:00] VITALS: BP 109/42
[2018-08-01] MEDS ORDERED: insulin glargine (Lantus) pen - multi-dose SQ ONE (10:00)
[2018-08-01] MEDS ORDERED: ALBU6.7H INH (13:16)
[2018-08-01] MEDS ORDERED: CEFU500T66 PO (13:16)
--- NOTE | 2018-08-01 14:21 | NUR ---
Dr. Chávez paged that 296 blood sugar after eating lunch and after 38 units of insulin given, patient is still not feeling well, will continue to monitor
--- NOTE | 2018-08-01 14:25 | NUR ---
Dr. Chávez Phoned back and said patient is stable enough to go home and can manage blood sugars at home. New glucometer give to patient to use at home and home health is ordered to follow patient at home.
[2018-08-01 16:00] VITALS: BP 124/80
--- NOTE | 2018-08-01 16:00 | NUR ---
Paged Dr. Chávez to let him know that Patient got up to bathroom and started feeling dizzy and lightheaded, vitals were 168/80 heart [id number], blood sugar 176, temp 101.2, resp 32, o2 95 on 3L, patient states she feels really weak. will continue to monitor
--- NOTE | 2018-08-01 16:15 | NUR ---
Dr. Chávez phoned back and said to keep patient over night due to new onset of fever, Tylenol given and will continue to monitor
[2018-08-01] MEDS ORDERED: ketorolac trometh. 30mg/ml inj. IM ONE (18:05)
[2018-08-01] MEDS ORDERED: azithromycin/NS 500mg/250ml 250 ML IV ONE (18:05)
--- NOTE | 2018-08-01 18:30 | NUR ---
Patient in room ORTHO 4011. I have received report from Roberto HANNA and had the opportunity to ask questions and assume patient care. New orders for high fever obtained. Will continue to monitor.
--- NOTE | 2018-08-01 18:37 | NUR ---
Problems reprioritized. Patient report given, questions answered & plan of care reviewed with Dayna HANNA.
[2018-08-01] MEDS: fluconazole-Diflucan 200mg/NS 100 ML IV SCH (20:11)
[2018-08-01] MEDS: pravastatin 40mg tablet PO SCH (20:15)
[2018-08-01] MEDS: CefTRIAXone 2gm/D5W 50ml 50 ML IV SCH (21:23)
[2018-08-01 22:00] VITALS: BP 114/55
[2018-08-02 02:00] VITALS: BP 133/71
[2018-08-02] MEDS: ipratropium/albuterol 3ml nebule NEB SCH ×6 (02:22→23:23)
[2018-08-02] MEDS: normal saline 1000ml 1,000 ML IV SCH ×2 (02:51→17:05)
[2018-08-02 05:00] VITALS: BP 144/68
--- NOTE | 2018-08-02 06:20 | NUR ---
Patient in room ORTHO 4011. I have received report from LISA HANNA and had the opportunity to ask questions and assume patient care.
--- NOTE | 2018-08-02 06:25 | NUR ---
Problems reprioritized. Patient report given, questions answered & plan of care reviewed with Neelam HANNA.
[2018-08-02] MEDS: FLUoxetine 20mg capsule PO SCH ×2 (07:23→19:18)
[2018-08-02] MEDS: pantoprazole 40mg Tablet.DR PO SCH (07:23)
[2018-08-02] MEDS: lactobacillus rhamnosus 10,000 MMU CELLS/CAPSULE PO SCH ×2 (07:23→19:18)
[2018-08-02] MEDS: gabapentin 400mg capsule PO SCH ×3 (07:23→21:22)
[2018-08-02] MEDS: enoxaparin 40mg/0.4ml syringe SQ SCH (07:24)
[2018-08-02] MEDS: HYDROcodone/acetaminophen 5mg/325mg tablet PO PRN ×3 (07:24→23:15)
[2018-08-02] MEDS: LIDOcaine 5% patch TP SCH (07:25)
[2018-08-02] MEDS: fluconazole-Diflucan 200mg/NS 100 ML IV SCH (07:25)
[2018-08-02] MEDS: insulin glargine (Lantus) pen - multi-dose SQ SCH ×2 (07:32→19:18)
[2018-08-02] MEDS: K and/or MAG REPLACEMENT MC SCH (08:00)
[2018-08-02] MEDS: BUDESONIDE 0.25 MG/2 ML AMPUL.NEB IH SCH ×2 (08:42→20:04)
[2018-08-02] MEDS: insulin Lispro (HumaLOG) vial - multi-dose SQ SCH ×4 (08:57→21:21)
[2018-08-02 10:00] VITALS: BP 105/50
[2018-08-02 10:43] LABS: ANION GAP 9 (8-16); BLOOD UREA NITROGEN 18 MG/DL (7-18); BUN/CREATININE RATIO 15.1 (6.6-38.0); CALCIUM 8.1 MG/DL (8.5-10.1); CHLORIDE 102 MMOL/L (99-107); CREATININE 1.19 MG/DL (0.40-0.90); GLUCOSE 326 MG/DL (70-104); MAGNESIUM 1.6 MG/DL (1.5-2.4); POTASSIUM 4.1 MMOL/L (3.5-5.1); SODIUM 133 MMOL/L (135-145); eGFR 45 ML/MIN
--- NOTE | 2018-08-02 12:00 | NUR ---
lidoderm opatch Addendum: 08/02/18 at 1420 by Neelam Valdez RN patch fell off in the shower
[2018-08-02] MEDS: methylPREDNISolone sod succ 125mg/2ml vial IV SCH ×2 (16:11→23:16)
--- NOTE | 2018-08-02 17:38 | NUR ---
Student documentation: I have reviewed and agree with all interventions, assessments performed and documented by FARAZ PAUL.
--- NOTE | 2018-08-02 17:38 | NUR ---
Student Medication Administration: For this medication-pass time frame, all medication were reviewed, dispensed, administered and documented per hospital policy by RAJWINDER HANNA.
[2018-08-02 18:00] VITALS: BP 127/66
--- NOTE | 2018-08-02 21:00 | NUR ---
Patient in room ORTHO 4011. I have received report from Neelam HANNA at 1830 and had the opportunity to ask questions and assume patient care.
[2018-08-02] MEDS: pravastatin 40mg tablet PO SCH (21:22)
[2018-08-02] MEDS: CefTRIAXone 2gm/D5W 50ml 50 ML IV SCH (21:23)
[2018-08-02 22:00] VITALS: BP 121/55
--- NOTE | 2018-08-03 03:06 | NUR ---
2300 PATIENT HAS CALLING FOR BEDPAN VERY FREQUENTLY, EVERY 20 TO 45 MINS. BLADDER SCANNED FOR 325 AND GOTTEN OUT OF BED TO THE BS., SAT ON COMMODE FOR ABOUT 15 MINS AND VOIDED 100ML, BACK TO BED AND ASKED FOR WICK "SO I CAN GET SOME SLEEP TONIGHT". WICK PLACED AND PATIENT REPOSITIONED WITH HEELS UP ON PILLOW. HAVE BEEN MONITORING PATIENT Q1HR, NO DISTRESS NOTED.
[2018-08-03] MEDS: ipratropium/albuterol 3ml nebule NEB SCH ×6 (03:55→23:08)
[2018-08-03] MEDS: aspirin/acetaminophen/caffeine tablet PO PRN (04:25)
--- NOTE | 2018-08-03 06:15 | NUR ---
Patient in room ORTHO 4011. I have received report from Margarita HANNA and had the opportunity to ask questions and assume patient care.
[2018-08-03] MEDS: normal saline 1000ml 1,000 ML IV SCH (06:25)
[2018-08-03 06:30] VITALS: BP 149/66
[2018-08-03 06:30] LABS: ALBUMIN 2.3 G/DL (3.4-5.0); ANION GAP 14 (8-16); BLOOD UREA NITROGEN 20 MG/DL (7-18); BUN/CREATININE RATIO 17.2 (6.6-38.0); CALCIUM 9.4 MG/DL (8.5-10.1); CHLORIDE 101 MMOL/L (99-107); CREATININE 1.16 MG/DL (0.40-0.90); GLUCOSE 395 MG/DL (70-104); POTASSIUM 4.8 MMOL/L (3.5-5.1); SODIUM 136 MMOL/L (135-145); TOTAL CARBON DIOXIDE 20.8 MMOL/L (24-32); eGFR 47 ML/MIN
--- NOTE | 2018-08-03 06:44 | NUR ---
Patient in room ORTHO 4011. I have received report from Alberta HANNA and had the opportunity to ask questions and assume patient care.
--- NOTE | 2018-08-03 06:48 | NUR ---
Problems reprioritized. Patient report given, questions answered & plan of care reviewed with Mejia and student nurses.
[2018-08-03] MEDS: K and/or MAG REPLACEMENT MC SCH (07:16)
[2018-08-03] MEDS: BUDESONIDE 0.25 MG/2 ML AMPUL.NEB IH SCH ×2 (08:00→19:01)
[2018-08-03] MEDS: LIDOcaine 5% patch TP SCH (08:00)
[2018-08-03] MEDS: FLUoxetine 20mg capsule PO SCH ×2 (08:24→20:16)
[2018-08-03] MEDS: pantoprazole 40mg Tablet.DR PO SCH (08:26)
[2018-08-03] MEDS: gabapentin 400mg capsule PO SCH ×3 (08:27→20:16)
[2018-08-03] MEDS: lactobacillus rhamnosus 10,000 MMU CELLS/CAPSULE PO SCH ×2 (08:29→20:16)
[2018-08-03] MEDS: methylPREDNISolone sod succ 125mg/2ml vial IV SCH (08:35)
[2018-08-03] MEDS: enoxaparin 40mg/0.4ml syringe SQ SCH (08:35)
[2018-08-03] MEDS: insulin glargine (Lantus) pen - multi-dose SQ SCH ×2 (08:36→21:09)
[2018-08-03] MEDS: fluconazole-Diflucan 200mg/NS 100 ML IV SCH (08:43)
[2018-08-03] MEDS: insulin Lispro (HumaLOG) vial - multi-dose SQ SCH ×4 (08:55→21:11)
[2018-08-03 10:00] VITALS: BP 140/53
[2018-08-03] MEDS: magnesium hydroxide 30ml (MOM) UD suspension PO PRN (10:35)
--- NOTE | 2018-08-03 11:52 | NUR ---
Student Medication Administration:For this medication-pass time frame 3883-3315, all medications were reviewed, administered and documented per hospital policy by Alec Barrientos. Student documentation:I have reviewed and agree with all interventions, assessments performed and documented by Alec Barrientos.
--- NOTE | 2018-08-03 12:22 | NUR ---
Problems reprioritized. Patient report given, to Margarita HANNA questions answered & plan of care reviewed.
[2018-08-03] MEDS: docusate sod 100mg capsule PO SCH ×2 (13:47→20:16)
[2018-08-03] MEDS: micafungin inj 100 MG in normal saline 100ml IV soln 100 ML IV SCH (13:47)
[2018-08-03] MEDS: HYDROcodone/acetaminophen 5mg/325mg tablet PO PRN (16:33)
[2018-08-03 18:00] VITALS: BP 161/83
--- NOTE | 2018-08-03 18:33 | NUR ---
Problems reprioritized. Patient report given, questions answered & plan of care reviewed with Franchesca HANNA.
[2018-08-03] MEDS: methylPREDNISolone sod succ/PF 40mg inj. IV SCH (20:16)
[2018-08-03] MEDS: pravastatin 40mg tablet PO SCH (20:16)
[2018-08-03] MEDS: CefTRIAXone 2gm/D5W 50ml 50 ML IV SCH (21:18)
[2018-08-03 22:00] VITALS: BP 130/64
[2018-08-04] MEDS: HYDROcodone/acetaminophen 5mg/325mg tablet PO PRN ×3 (01:09→17:30)
[2018-08-04] MEDS: ipratropium/albuterol 3ml nebule NEB SCH ×6 (02:56→23:06)
[2018-08-04] MEDS: aspirin/acetaminophen/caffeine tablet PO PRN (03:17)
[2018-08-04 06:00] VITALS: BP 153/75
--- NOTE | 2018-08-04 06:21 | NUR ---
Patient in room ORTHO 4009. I have received report from Arline HANNA and had the opportunity to ask questions and assume patient care.
--- NOTE | 2018-08-04 06:22 | NUR ---
Report given to Roberto HANNA.
[2018-08-04 07:05] VITALS: BP 167/71
--- NOTE | 2018-08-04 07:11 | NUR ---
Patient in room ORTHO 4009. I have received report from Franchesca Arana RN and had the opportunity to ask questions and assume patient care.
[2018-08-04 07:13] LABS: ALBUMIN 2.3 G/DL (3.4-5.0); ANION GAP 11 (8-16); BLOOD UREA NITROGEN 32 MG/DL (7-18); BUN/CREATININE RATIO 24.4 (6.6-38.0); CALCIUM 9.3 MG/DL (8.5-10.1); CHLORIDE 101 MMOL/L (99-107); CREATININE 1.31 MG/DL (0.40-0.90); GLUCOSE 309 MG/DL (70-104); MAGNESIUM 2.2 MG/DL (1.5-2.4); POTASSIUM 4.4 MMOL/L (3.5-5.1); SODIUM 136 MMOL/L (135-145); TOTAL CARBON DIOXIDE 23.8 MMOL/L (24-32); eGFR 41 ML/MIN
[2018-08-04] MEDS: BUDESONIDE 0.25 MG/2 ML AMPUL.NEB IH SCH ×2 (07:35→19:30)
[2018-08-04] MEDS: K and/or MAG REPLACEMENT MC SCH (08:00)
[2018-08-04] MEDS: LIDOcaine 5% patch TP SCH (08:00)
[2018-08-04] MEDS: docusate sod 100mg capsule PO SCH ×2 (08:00→21:00)
[2018-08-04] MEDS: pantoprazole 40mg Tablet.DR PO SCH (08:01)
[2018-08-04] MEDS: gabapentin 400mg capsule PO SCH ×3 (08:02→21:00)
[2018-08-04] MEDS: FLUoxetine 20mg capsule PO SCH ×2 (08:03→21:00)
[2018-08-04] MEDS: lactobacillus rhamnosus 10,000 MMU CELLS/CAPSULE PO SCH ×2 (08:04→21:01)
[2018-08-04] MEDS: enoxaparin 40mg/0.4ml syringe SQ SCH (08:06)
[2018-08-04] MEDS: insulin glargine (Lantus) pen - multi-dose SQ SCH ×2 (08:30→21:08)
[2018-08-04] MEDS: insulin Lispro (HumaLOG) vial - multi-dose SQ SCH ×4 (08:31→21:07)
[2018-08-04] MEDS: methylPREDNISolone sod succ/PF 40mg inj. IV SCH (08:32)
--- NOTE | 2018-08-04 08:44 | NUR ---
called pharmacy for antibiotic microfungin was not in the patient specific bin, will continue to monitor
[2018-08-04 10:00] VITALS: BP 154/81
[2018-08-04] MEDS: micafungin inj 100 MG in normal saline 100ml IV soln 100 ML IV SCH (10:28)
--- NOTE | 2018-08-04 11:38 | NUR ---
Student Medication Administration:For this medication-pass time frame 9297-2068, all medications were reviewed, administered and documented per hospital policy by Alec Barrientos. Student documentation:I have reviewed and agree with all interventions, assessments performed and documented by Alec Barrientos.
--- NOTE | 2018-08-04 11:57 | NUR ---
Problems reprioritized. Patient report given, questions answered & plan of care reviewed with Arline HANNA.
[2018-08-04] MEDS ORDERED: ketorolac tromethamine 15mg/ml inj. IV PRN (13:20)
[2018-08-04] MEDS: magnesium hydroxide 30ml (MOM) UD suspension PO PRN (13:35)
[2018-08-04] MEDS: predniSONE 20 mg tablet PO SCH (13:36)
[2018-08-04 14:00] VITALS: BP 164/78
--- NOTE | 2018-08-04 16:52 | NUR ---
Paged respiratory that patient needs a treatment malachi patient is having trouble catching breath from coughing, will continue to monitor
[2018-08-04 18:00] VITALS: BP 154/80
--- NOTE | 2018-08-04 18:07 | NUR ---
Problems reprioritized. Patient report given, questions answered & plan of care reviewed with Franchesca Arana RN.
[2018-08-04] MEDS: pravastatin 40mg tablet PO SCH (21:01)
[2018-08-04] MEDS: CefTRIAXone 2gm/D5W 50ml 50 ML IV SCH (21:13)
[2018-08-05] MEDS: HYDROcodone/acetaminophen 5mg/325mg tablet PO PRN ×2 (01:07→07:37)
[2018-08-05] MEDS: ipratropium/albuterol 3ml nebule NEB SCH ×3 (02:50→11:53)
[2018-08-05] MEDS: aspirin/acetaminophen/caffeine tablet PO PRN (05:08)
[2018-08-05 06:00] VITALS: BP 158/71
--- NOTE | 2018-08-05 06:16 | NUR ---
Report given to Roberto HANNA.
--- NOTE | 2018-08-05 07:01 | NUR ---
Patient in room ORTHO 4009. I have received report from dale Arana RN and had the opportunity to ask questions and assume patient care.
[2018-08-05] MEDS: magnesium hydroxide 30ml (MOM) UD suspension PO PRN (07:35)
[2018-08-05] MEDS: gabapentin 400mg capsule PO SCH ×2 (07:36→13:56)
[2018-08-05] MEDS: enoxaparin 40mg/0.4ml syringe SQ SCH (07:36)
[2018-08-05] MEDS: docusate sod 100mg capsule PO SCH (07:37)
[2018-08-05] MEDS: FLUoxetine 20mg capsule PO SCH (07:38)
[2018-08-05] MEDS: pantoprazole 40mg Tablet.DR PO SCH (07:38)
[2018-08-05] MEDS: lactobacillus rhamnosus 10,000 MMU CELLS/CAPSULE PO SCH (07:38)
[2018-08-05] MEDS: K and/or MAG REPLACEMENT MC SCH (07:40)
[2018-08-05] MEDS: micafungin inj 100 MG in normal saline 100ml IV soln 100 ML IV SCH (07:43)
[2018-08-05] MEDS: insulin glargine (Lantus) pen - multi-dose SQ SCH (07:53)
[2018-08-05] MEDS: LIDOcaine 5% patch TP SCH (07:55)
[2018-08-05] MEDS: BUDESONIDE 0.25 MG/2 ML AMPUL.NEB IH SCH (08:00)
[2018-08-05] MEDS: insulin Lispro (HumaLOG) vial - multi-dose SQ SCH ×2 (09:01→13:55)
[2018-08-05] MEDS: predniSONE 20 mg tablet PO SCH (09:03)
[2018-08-05 10:00] VITALS: BP 164/80
--- NOTE | 2018-08-05 11:01 | NUR ---
reassessment: Pt PO 100% meals meeting needs. LBM 07/29 RD d/w RN who reports MD changed colace to BID today and pt now receiving MoM as well for additional bowel care. GLU 219 on prednisone. Will continue to monitor. Recommendations: 1) Continue with heart healthy CHO controlled diet 2) Soft to chew per pt request 3) routine bowel care 4) Wt per rx Addendum: 08/05/18 at [address] Amended: Links added.
[2018-08-05 12:08] LABS: BASOPHILS % (AUTO) 0.2 % (0-1); EOSINOPHILS % (AUTO) 0 % (0-6); HEMATOCRIT 32.7 % (35.0-45.0); HEMOGLOBIN 10.8 g/dl (12.0-16.0); LYMPHOCYTES # (AUTO) 1.7 X10'3 (1.1-4.8); LYMPHOCYTES % (AUTO) 10.1 % (21-51); MEAN CORPUSCULAR HEMOGLOBIN 31.5 PG (27.0-31.0); MEAN CORPUSCULAR VOLUME 95.4 FL (78-98); MEAN PLATELET VOLUME 8.2 FL (7.4-10.4); MONOCYTES # (AUTO) 1.3 X10'3 (0-0.9); NEUTROPHILS # (AUTO) 13.6 X10'3 (1.8-7.7); NEUTROPHILS % (AUTO) 81.7 % (42-75); PLATELET COUNT 268 X10'3 (140-440); RED BLOOD COUNT 3.43 X10'6 (4.20-5.60); RED CELL DISTRIBUTION WIDTH 14.1 % (11.5-14.5); WHITE BLOOD COUNT 16.7 X10'3 (4.5-11.0)
[2018-08-05 12:13] LABS: ALBUMIN 2.2 G/DL (3.4-5.0); ANION GAP 9 (8-16); BLOOD UREA NITROGEN 32 MG/DL (7-18); BUN/CREATININE RATIO 32.3 (6.6-38.0); CALCIUM 9.2 MG/DL (8.5-10.1); CHLORIDE 104 MMOL/L (99-107); CREATININE 0.99 MG/DL (0.40-0.90); GLUCOSE 190 MG/DL (70-104); POTASSIUM 4.5 MMOL/L (3.5-5.1); SODIUM 137 MMOL/L (135-145); TOTAL CARBON DIOXIDE 24.2 MMOL/L (24-32); eGFR 56 ML/MIN
--- NOTE | 2018-08-05 14:11 | NUR ---
Problems reprioritized. Patient report given, questions answered & plan of care reviewed with Ronda HANNA.
[2018-08-07] MEDS ORDERED: ALB0.5UD IH (11:05)
[2018-08-07] MEDS ORDERED: PRED20TA PO (11:05)
[2018-08-07] MEDS ORDERED: AZI25OT PO (11:05)
== END 2018-08-05 15:41 | disposition home health service (06) | DRG 682 ==
LOC: ER 16:37 → ED HOLD 20:20 → ORTHO 4S 23:02
PROVIDERS: ADMIT Hospitalist; ATTEND Internal Medicine
PROC: [UNRECOGNIZED PROCEDURE] (principal; 2018-08-04)
DX: N17.9 Acute kidney failure, unspecified (principal); E43 Unspecified severe protein-calorie malnutrition; J44.1 Chronic obstructive pulmonary disease with (acute) exacerbation; J96.10 Chronic respiratory failure, unspecified whether with hypoxia or hypercapnia; E87.1 Hypo-osmolality and hyponatremia; N39.0 Urinary tract infection, site not specified; J44.0 Chronic obstructive pulmonary disease with (acute) lower respiratory infection; J84.10 Pulmonary fibrosis, unspecified; E11.40 Type 2 diabetes mellitus with diabetic neuropathy, unspecified; E11.65 Type 2 diabetes mellitus with hyperglycemia; E78.00 Pure hypercholesterolemia, unspecified; E78.5 Hyperlipidemia, unspecified; E86.0 Dehydration; G20 Parkinson's disease; G89.4 Chronic pain syndrome; I10 Essential (primary) hypertension; J20.9 Acute bronchitis, unspecified; K59.09 Other constipation; F41.9 Anxiety disorder, unspecified; G43.909 Migraine, unspecified, not intractable, without status migrainosus; M17.10 Unilateral primary osteoarthritis, unspecified knee; M94.0 Chondrocostal junction syndrome [Tietze]; E04.1 Nontoxic single thyroid nodule; T38.0X5A Adverse effect of glucocorticoids and synthetic analogues, initial encounter; Z90.710 Acquired absence of both cervix and uterus; Z98.1 Arthrodesis status; Z99.81 Dependence on supplemental oxygen; Z88.5 Allergy status to narcotic agent; Z88.0 Allergy status to penicillin; Z79.4 Long term (current) use of insulin; Z79.82 Long term (current) use of aspirin; I25.2 Old myocardial infarction; Z79.899 Other long term (current) drug therapy; Z86.73 Personal history of transient ischemic attack (TIA), and cerebral infarction without residual deficits; Z80.9 Family history of malignant neoplasm, unspecified; Z82.0 Family history of epilepsy and other diseases of the nervous system; Z82.5 Family history of asthma and other chronic lower respiratory diseases; Z83.3 Family history of diabetes mellitus; Z68.36 Body mass index [BMI] 36.0-36.9, adult; Y92.89 Other specified places as the place of occurrence of the external cause
CPT/HCPCS: 36415; 70450; 71045; 71250; 74018; 76536; 78014; 80048; 80053; 81001; 82948; 83036; 83605; 83735; 83880; 84145; 84439; 84443; 84480; 85025; 85610; 85730; 87040; 87070; 87077; 87088; 87502; 87503; 93005; 94640; 94760; 96374; 96375; 97116; 97161; 99285; A9516; G0378; J0456; J0696; J1450; J1650; J1815; J1885; J2248; J2405; J2920; J2930; J7030; J7512; J7626

== ENCOUNTER 2018-08-27 20:30 | Emergency (ER) | payer MEDICARE, MEDICAID ==
[~2018-08-27] VITALS: Ht 162.6 cm; Wt 100.0 kg
[~2018-08-27 20:30] MED LIST changes: +ALB0.5UD IH; +ALBU6.7H INH; +AZI25OT PO
[2018-08-27 22:03] LABS: BASOPHILS # (AUTO) 0.1 X10'3 (0-0.2); BASOPHILS % (AUTO) 0.7 % (0-1); EOSINOPHILS # (AUTO) 0.2 X10'3 (0-0.9); EOSINOPHILS % (AUTO) 1.7 % (0-6); HEMATOCRIT 34.2 % (35.0-45.0); HEMOGLOBIN 11.5 g/dl (12.0-16.0); LYMPHOCYTES # (AUTO) 1.9 X10'3 (1.1-4.8); LYMPHOCYTES % (AUTO) 17.3 % (21-51); MEAN CORPUSCULAR HEMOGLOBIN 31.8 PG (27.0-31.0); MEAN CORPUSCULAR HGB CONC 33.5 g/dL (33.0-36.5); MEAN CORPUSCULAR VOLUME 94.9 FL (78-98); MEAN PLATELET VOLUME 8.3 FL (7.4-10.4); MONOCYTES # (AUTO) 0.9 X10'3 (0-0.9); MONOCYTES % (AUTO) 7.7 % (2-12); NEUTROPHILS # (AUTO) 8.2 X10'3 (1.8-7.7); NEUTROPHILS % (AUTO) 72.6 % (42-75); PLATELET COUNT 225 X10'3 (140-440); RED BLOOD COUNT 3.61 X10'6 (4.20-5.60); WHITE BLOOD COUNT 11.3 X10'3 (4.5-11.0)
[2018-08-27 22:17] LABS: ALANINE AMINOTRANSFERASE 24 U/L (12-78); ALBUMIN 2.7 G/DL (3.4-5.0); ALBUMIN/GLOBULIN RATIO 0.7 (1.1-1.5); ALKALINE PHOSPHATASE 97 IU/L (46-116); ANION GAP 11 (8-16); ASPARTATE AMINO TRANSFERASE 17 U/L (10-37); BILIRUBIN,TOTAL 0.5 MG/DL (0.1-1.0); BLOOD UREA NITROGEN 37 MG/DL (7-18); BUN/CREATININE RATIO 29.8 (6.6-38.0); CHLORIDE 97 MMOL/L (99-107); CREATININE 1.24 MG/DL (0.40-0.90); GLUCOSE 415 MG/DL (70-104); POTASSIUM 5.5 MMOL/L (3.5-5.1); SODIUM 130 MMOL/L (135-145); TOTAL CARBON DIOXIDE 21.9 MMOL/L (24-32); TOTAL PROTEIN 6.8 G/DL (6.4-8.2); eGFR 43 ML/MIN
[2018-08-27 22:55] LABS: CLARITY,URINE CLEAR (Clear); COLOR,URINE YELLOW (Yellow); GLUCOSE, URINE >=1000 mg/dl (Neg); KETONES,URINE NEGATIVE (Neg); LEUKOCYTE ESTERASE ,URINE NEGATIVE (Neg); NITRITES, URINE NEGATIVE (Neg); OCCULT BLOOD,URINE NEGATIVE (Neg); PH,URINE 5.5 (4.8-8.0); PROTEIN,URINE TRACE mg/dl (Neg); UROBILINOGEN,URINE 0.2 E.U/dL (0.2-1.0)
[2018-08-27 22:57] LABS: UA COLLECTION TYPE VOIDED
[2018-08-27 23:04] LABS: WBC,URINE 0-4 /HPF (0-4)
[2018-08-27 23:05] LABS: BACTERIA,URINE FEW /HPF (Neg); RBC,URINE NONE SEEN /HPF (0-2); SQUAMOUS EPITHELIAL CELL,UR FEW /LPF (FEW)
[2018-08-27] MEDS ORDERED: FURO-150 PO (23:35)
[2018-08-27] MEDS ORDERED: POTA20TA10 PO (23:35)
[2018-08-28 00:11] VITALS: BP 132/75
[2018-08-28] MEDS ORDERED: ondansetron/PF 4mg/2ml inj IV ONE (00:15)
[2018-08-28] MEDS ORDERED: normal saline 1000ML IV soln IVB ONE (00:15)
[2018-08-28] MEDS ORDERED: insulin regular, human 10 units/0.1 ml syringe IV ONE (00:35)
[2018-08-28 01:06] LABS: TROPONIN I < 0.04 NG/ML (0.0-0.05)
--- NOTE | 2018-08-28 01:30 | NUR ---
PT WITH NO FURTHER NAUSEA. GIVEN JUICE BOX AND CRACKERS AND ABOT TO INTAKE THESE WITH NO PROBLEMS.
[2018-08-28] MEDS ORDERED: normal saline 1000ml 1,000 ML IV ONE (01:45)
--- NOTE | 2018-08-28 02:19 | NUR ---
PT UP TO BSC WITH SBA. PT SOB AFTER GETTING BACK TO BED. B 162/100. 96% ON 3 L NC.
--- NOTE | 2018-08-28 02:20 | NUR ---
DAUGHTER AT BEDSIDE.
[2018-08-28] MEDS ORDERED: ONDA8TAB6 PO (02:24)
== END 2018-08-28 03:50 | disposition home or self-care (01) ==
LOC: ER 20:31
DX: K52.89 Other specified noninfective gastroenteritis and colitis (principal); E11.65 Type 2 diabetes mellitus with hyperglycemia; E78.00 Pure hypercholesterolemia, unspecified; I10 Essential (primary) hypertension; I25.2 Old myocardial infarction; J44.9 Chronic obstructive pulmonary disease, unspecified; Z86.73 Personal history of transient ischemic attack (TIA), and cerebral infarction without residual deficits; Z90.710 Acquired absence of both cervix and uterus; Z98.890 Other specified postprocedural states; Z90.89 Acquired absence of other organs; Z88.5 Allergy status to narcotic agent; Z88.0 Allergy status to penicillin; Z79.899 Other long term (current) drug therapy; Z79.4 Long term (current) use of insulin; Z79.82 Long term (current) use of aspirin
CPT/HCPCS: 36415; 71045; 80053; 81001; 82948; 84484; 85025; 85610; 96361; 96374; 96375; 99284; J1815; J2405; J7030

== ENCOUNTER 2018-08-29 06:52 | Emergency (ER) | payer MEDICAID, MEDICARE ==
[~2018-08-29 06:52] MED LIST changes: -ASPI-1 PO; -AZI25OT PO; +FURO-150 PO; -IBUP-2417; -MULT-821 PO; -OMEP40CA37 PO; +ONDA8TAB6 PO; +POTA20TA10 PO
[2018-08-29] MEDS ORDERED: ipratropium/albuterol 3ml nebule NEB ONE (07:15)
[2018-08-29 07:50] LABS: BASOPHILS % (AUTO) 0.6 % (0-1); EOSINOPHILS % (AUTO) 0.1 % (0-6); HEMATOCRIT 31.5 % (35.0-45.0); HEMOGLOBIN 10.7 g/dl (12.0-16.0); LYMPHOCYTES # (AUTO) 1.1 X10'3 (1.1-4.8); LYMPHOCYTES % (AUTO) 14.5 % (21-51); MEAN CORPUSCULAR HGB CONC 33.8 g/dL (33.0-36.5); MEAN CORPUSCULAR VOLUME 94.7 FL (78-98); MEAN PLATELET VOLUME 7.9 FL (7.4-10.4); MONOCYTES # (AUTO) 0.8 X10'3 (0-0.9); MONOCYTES % (AUTO) 9.9 % (2-12); NEUTROPHILS # (AUTO) 5.7 X10'3 (1.8-7.7); NEUTROPHILS % (AUTO) 74.9 % (42-75); PLATELET COUNT 210 X10'3 (140-440); RED BLOOD COUNT 3.33 X10'6 (4.20-5.60); RED CELL DISTRIBUTION WIDTH 15.1 % (11.5-14.5); WHITE BLOOD COUNT 7.6 X10'3 (4.5-11.0)
[2018-08-29 07:58] LABS: INR 1.1 INR; PARTIAL THROMBOPLASTIN TIME 32 SECONDS (22-32)
[2018-08-29 08:05] LABS: ALANINE AMINOTRANSFERASE 34 U/L (12-78); ALBUMIN 2.7 G/DL (3.4-5.0); ALBUMIN/GLOBULIN RATIO 0.6 (1.1-1.5); ALKALINE PHOSPHATASE 84 IU/L (46-116); ANION GAP 10 (8-16); ASPARTATE AMINO TRANSFERASE 45 U/L (10-37); BILIRUBIN,TOTAL 0.3 MG/DL (0.1-1.0); BLOOD UREA NITROGEN 24 MG/DL (7-18); BUN/CREATININE RATIO 22.4 (6.6-38.0); CALCIUM 9.1 MG/DL (8.5-10.1); CHLORIDE 100 MMOL/L (99-107); CREATININE 1.07 MG/DL (0.40-0.90); GLUCOSE 383 MG/DL (70-104); POTASSIUM 4.8 MMOL/L (3.5-5.1); SODIUM 132 MMOL/L (135-145); TOTAL CARBON DIOXIDE 21.6 MMOL/L (24-32); TOTAL PROTEIN 6.9 G/DL (6.4-8.2); eGFR 51 ML/MIN
[2018-08-29] MEDS ORDERED: iohexol 350MG/ML 100ml bottle IV ONE (08:46)
[2018-08-29] MEDS ORDERED: acetaminophen 325mg tablet PO ONE (09:55)
--- NOTE | 2018-08-29 10:20 | NUR ---
daughter nancy ( [phone]) notified of patient being dc'd. eta 1 hour
[2018-08-29 12:04] VITALS: BP 146/83
== END 2018-08-29 10:00 | disposition home or self-care (01) ==
LOC: ER 06:52
DX: R07.89 Other chest pain (principal); R05 Cough; R50.9 Fever, unspecified; I10 Essential (primary) hypertension; E78.00 Pure hypercholesterolemia, unspecified; I25.2 Old myocardial infarction; J44.9 Chronic obstructive pulmonary disease, unspecified; E11.9 Type 2 diabetes mellitus without complications; Z86.73 Personal history of transient ischemic attack (TIA), and cerebral infarction without residual deficits; Z90.710 Acquired absence of both cervix and uterus; Z88.6 Allergy status to analgesic agent; Z88.0 Allergy status to penicillin; Z88.8 Allergy status to other drugs, medicaments and biological substances; Z79.4 Long term (current) use of insulin
CPT/HCPCS: 36415; 71045; 71275; 80053; 83880; 84484; 85025; 85610; 85730; 93005; 94640; 94760; 99284; Q9967